=== PATIENT | female | born 1950 | race Caucasian/White ===

== ENCOUNTER 2016-10-18 22:58 | Emergency (ER) | payer MEDICAID ==
[~2016-10-18] VITALS: Ht 162.6 cm; Wt 83.9 kg
[2016-10-19 00:58] LABS: Basophils # (auto) 0.2 uL; Basophils % (auto) 2.4 % (0.0-2.0); Eosinophils # (auto) 0.2 uL; Eosinophils % (auto) 2.9 % (0.0-7.0); Hematocrit 46.3 % (36.0-46.0); Hemoglobin 15.1 g/dL (12.2-16.2); Lymphocytes # (auto) 2.7 uL; Lymphocytes % (auto) 40.6 % (10.0-50.0); Mean Corpuscular Hemoglobin 30.6 pg (28.0-32.0); Mean Corpuscular Hgb Conc. 32.6 g/dL (32.0-36.0); Mean Corpuscular Volume 93.8 fL (80.0-100.0); Mean Platelet Volume 9.4 fL (7.4-10.4); Monocytes # (auto) 0.8 uL; Monocytes % (auto) 11.8 % (0.0-12.0); Neutrophils # (auto) 2.6 uL; Neutrophils % (auto) 42.3 % (37.0-80.0); Platelet Count (auto) 177 10^3/uL (140-450); Red Cell Distribution Width 13.4 % (11.6-16.0); White Blood Cell 6.5 10^3/uL (4.4-10.8)
[2016-10-19 01:10] LABS: Albumin 3.3 g/dL (3.4-5.0); BUN/Creatinine Ratio 22.2
[2016-10-19 01:15] LABS: Bilirubin, Total 0.2 mg/dL (0.2-1.0); Total Protein 6.9 g/dL (6.4-8.2)
[2016-10-19] MEDS ORDERED: SODIUM CHLORIDE 0.9% 1,000 ML IV ONE (06:42)
[2016-10-19] MEDS ORDERED: methylPREDNISolone SOD SUCC 125 MG/2 ML VL IV ONE (06:45)
[2016-10-19] MEDS ORDERED: diphenhdrAMINE HCL 50 MG/1 ML VL IV ONE ×2 (06:45→11:45)
[2016-10-19 10:15] LABS: Urine Bilirubin Negative (Negative); Urine Blood Negative /uL (Negative); Urine Color Yellow (Yellow); Urine Glucose Normal (Normal); Urine Ketone Negative (Negative); Urine Mucus FEW (None Seen); Urine Nitrite Negative (Negative); Urine RBC <1 /hpf (0 - 4); Urine Squamous Epithelial Cell FEW /hpf (<5); Urine Urobilinogen Normal (Negative); Urine pH 5.5 (5.0-8.0)
[2016-10-19] MEDS ORDERED: PANTOPRAZOLE SODIUM 40 MG/10 ML VIAL IV ONE (11:45)
[2016-10-19 14:18] VITALS: BP 155/56
== END 2016-10-19 14:32 | disposition home or self-care (01) ==
LOC: ER 23:30
DX: L50.9 Urticaria, unspecified (principal); J44.9 Chronic obstructive pulmonary disease, unspecified; F17.210 Nicotine dependence, cigarettes, uncomplicated; B19.20 Unspecified viral hepatitis C without hepatic coma; Z90.49 Acquired absence of other specified parts of digestive tract
CPT/HCPCS: 36415; 80053; 81001; 85025; 96361; 96374; 96375; 96376; 99284; C9113; J1200; J2930; J7030

== ENCOUNTER 2017-03-14 15:43 | Emergency (ER) | payer MEDICAID ==
[~2017-03-14] VITALS: Ht 160 cm; Wt 81.6 kg
[2017-03-14] MEDS ORDERED: traMADol HCL 50 MG TAB PO ONE (16:00)
[2017-03-14 16:25] VITALS: BP 125/84
[2017-03-14 16:26] LABS: Basophils # (auto) 0 uL; Basophils % (auto) 0.3 % (0.0-2.0); CONDITION Y; Eosinophils # (auto) 0.3 uL; Eosinophils % (auto) 4.3 % (0.0-7.0); Hematocrit 43.7 % (36.0-46.0); Hemoglobin 14.7 g/dL (12.2-16.2); Lymphocytes # (auto) 2.9 uL; Lymphocytes % (auto) 46.7 % (10.0-50.0); Mean Corpuscular Hemoglobin 31.5 pg (28.0-32.0); Mean Corpuscular Hgb Conc. 33.7 g/dL (32.0-36.0); Mean Corpuscular Volume 93.7 fL (80.0-100.0); Mean Platelet Volume 9.8 fL (7.4-10.4); Monocytes # (auto) 0.6 uL; Monocytes % (auto) 10.1 % (0.0-12.0); Neutrophils # (auto) 2.4 uL; Neutrophils % (auto) 38.6 % (37.0-80.0); Platelet Count (auto) 204 10^3/uL (140-450); White Blood Cell 6.2 10^3/uL (4.4-10.8)
[2017-03-14 16:58] LABS: Albumin 3.5 g/dL (3.4-5.0); Anion Gap 8 (5-15); Aspartate Aminotransferase 31 U/L (15-37); BUN/Creatinine Ratio 18.8; Blood Urea Nitrogen 16 mg/dL (7-18); Calcium 9.3 mg/dL (8.5-10.1); Carbon Dioxide 26 mmol/L (21-32); Chloride 111 mmol/L (98-107); GFR African American 87 mL/min; GFR Non-African American 72 mL/min; Glucose 99 mg/dL (74-106); Magnesium 2.3 mg/dL (1.6-2.6); Sodium 145 mmol/L (136-145)
[2017-03-14 17:05] LABS: Alkaline Phosphatase 120 U/L (45-117); Bilirubin, Total 0.5 mg/dL (0.2-1.0); Total Protein 7.2 g/dL (6.4-8.2)
[2017-03-14 17:20] LABS: Potassium 4.4 mmol/L (3.5-5.1)
== END 2017-03-14 17:51 | disposition home or self-care (01) ==
LOC: EDBD 15:43 → ER 15:49
DX: R07.89 Other chest pain (principal); M79.602 Pain in left arm; M94.0 Chondrocostal junction syndrome [Tietze]; J44.9 Chronic obstructive pulmonary disease, unspecified; Z90.49 Acquired absence of other specified parts of digestive tract; F17.210 Nicotine dependence, cigarettes, uncomplicated
CPT/HCPCS: 36415; 71010; 80053; 83735; 84484; 85025; 85379; 93005; 94761

== ENCOUNTER 2018-03-08 18:02 | Emergency (ER) | payer MEDICARE, MEDICAID ==
[~2018-03-08] VITALS: Ht 160 cm; Wt 80.7 kg
[2018-03-08 18:22] VITALS: BP 137/75
== END 2018-03-08 23:06 | disposition left against medical advice (07) ==
LOC: ER 18:02
DX: T17.298A Other foreign object in pharynx causing other injury, initial encounter (principal); Z53.21 Procedure and treatment not carried out due to patient leaving prior to being seen by health care provider
CPT/HCPCS: 70360

== ENCOUNTER 2018-05-21 05:58 | Observation (INO) | payer MEDICARE, MEDICAID ==
[~2018-05-21] VITALS: Ht 172.7 cm; Wt 72.6 kg
[2018-05-21 07:19] LABS: Basophils # (auto) 0 uL; Basophils % (auto) 0.2 % (0.0-2.0); Eosinophils # (auto) 0.1 uL; Eosinophils % (auto) 1.4 % (0.0-7.0); Hematocrit 44.5 % (36.0-46.0); Hemoglobin 15.2 g/dL (12.2-16.2); Lymphocytes # (auto) 2.2 uL; Lymphocytes % (auto) 27.2 % (10.0-50.0); Mean Corpuscular Hemoglobin 32.4 pg (28.0-32.0); Mean Corpuscular Volume 95.1 fL (80.0-100.0); Monocytes # (auto) 0.8 uL; Monocytes % (auto) 10.3 % (0.0-12.0); Neutrophils % (auto) 60.9 % (37.0-80.0); Nucleated Red Blood Cells % 0.1 %; Platelet Count (auto) 162 10^3/uL (140-450); Red Blood Cells 4.68 10^6/uL (4.0-5.20); Red Cell Distribution Width 13.9 % (11.8-14.3); White Blood Cell 8.2 10^3/uL (4.4-10.8)
[2018-05-21 07:31] VITALS: BP 123/74
[2018-05-21 07:43] LABS: Albumin 3.6 g/dL (3.4-5.0); Amylase 46 U/L (25-115); Anion Gap 8 (5-15); Blood Urea Nitrogen 15 mg/dL (7-18); Calcium 8.9 mg/dL (8.5-10.1); Carbon Dioxide 23 mmol/L (21-32); Chloride 111 mmol/L (98-107); Glucose 104 mg/dL (74-106); Lipase 128 U/L (73-393); Magnesium 2.6 mg/dL (1.6-2.6); Potassium 3.6 mmol/L (3.5-5.1); Sodium 142 mmol/L (136-145)
[2018-05-21 07:47] LABS: Salicylate 1.8 mg/dL (2.8-20.0)
[2018-05-21 07:50] LABS: Acetaminophen < 2.0 ug/mL (10-30); Alanine Aminotransferase 30 U/L (13-56); Alkaline Phosphatase 107 U/L (45-117); Aspartate Aminotransferase 27 U/L (15-37); GFR African American 77 mL/min; GFR Non-African American 64 mL/min; Total Protein 7.5 g/dL (6.4-8.2)
== END 2018-05-21 08:24 | disposition home or self-care (01) | DRG 390 ==
LOC: EDBD 05:58 → ER 06:07 → OVERFLOW 06:08 → ER 08:24
PROVIDERS: ADMIT Emergency Medicine; ATTEND Emergency Medicine
DX: K56.41 Fecal impaction (principal); J44.9 Chronic obstructive pulmonary disease, unspecified; F17.210 Nicotine dependence, cigarettes, uncomplicated
CPT/HCPCS: 36415; 80053; 80329; 82150; 83690; 83735; 84484; 85025; 93005; 99285; G0378

== ENCOUNTER 2019-05-17 01:15 | Emergency (ER) | payer MEDICARE, MEDICAID ==
[~2019-05-17] VITALS: Ht 167.6 cm; Wt 81.6 kg
[2019-05-17 02:04] LABS: Basophils # (auto) 0 uL; Basophils % (auto) 0.3 % (0.0-2.0); Eosinophils # (auto) 0.1 uL; Hemoglobin 15.9 g/dL (12.2-16.2); Lymphocytes # (auto) 1.8 uL; Lymphocytes % (auto) 30.6 % (10.0-50.0); Mean Corpuscular Hemoglobin 32.5 pg (28.0-32.0); Mean Corpuscular Hgb Conc. 34.6 g/dL (32.0-36.0); Monocytes # (auto) 0.5 uL; Monocytes % (auto) 8.5 % (0.0-12.0); Neutrophils # (auto) 3.5 uL; Neutrophils % (auto) 59.6 % (37.0-80.0); Nucleated Red Blood Cells % 0.1 %; Platelet Count (auto) 166 10^3/uL (140-450); Red Cell Distribution Width 13.8 % (11.8-14.3); White Blood Cell 5.9 10^3/uL (4.4-10.8)
[2019-05-17 02:19] LABS: INR 0.99 (0.9-1.15)
[2019-05-17 02:22] LABS: Albumin 3.8 g/dL (3.4-5.0); Anion Gap 8 (5-15); BUN/Creatinine Ratio 14.5; Blood Urea Nitrogen 11 mg/dL (7-18); Calcium 9.3 mg/dL (8.5-10.1); Carbon Dioxide 24 mmol/L (21-32); Chloride 110 mmol/L (98-107); GFR African American 98 mL/min; GFR Non-African American 81 mL/min; Glucose 110 mg/dL (74-106); Potassium 3.5 mmol/L (3.5-5.1); Sodium 142 mmol/L (136-145)
[2019-05-17 02:26] LABS: Alanine Aminotransferase 23 U/L (13-56); Alkaline Phosphatase 97 U/L (45-117); Aspartate Aminotransferase 25 U/L (15-37); Bilirubin, Total 0.5 mg/dL (0.2-1.0); Total Protein 7.5 g/dL (6.4-8.2)
[2019-05-17] MEDS ORDERED: LORazepam 0.5 MG TAB PO ONE (04:00)
[2019-05-17 05:00] VITALS: BP 165/76
== END 2019-05-17 05:53 | disposition home or self-care (01) ==
LOC: EDBD 01:15 → ER 01:16
DX: R00.2 Palpitations (principal); J44.9 Chronic obstructive pulmonary disease, unspecified; F17.210 Nicotine dependence, cigarettes, uncomplicated; F15.90 Other stimulant use, unspecified, uncomplicated; Z90.49 Acquired absence of other specified parts of digestive tract; Z86.19 Personal history of other infectious and parasitic diseases
CPT/HCPCS: 36415; 71045; 80053; 83880; 84484; 85025; 85610; 85730; 93005; 94761